=== PATIENT | female | born 1980 | race Caucasian/White ===

== ENCOUNTER 2018-05-19 06:05 | Inpatient (IN) | payer OTHER ==
[2018-05-18 08:44] VITALS: BMI 31.4
[2018-05-19 06:31] LABS: HEMOGLOBIN 8.1 GM/dL (10.7-15.3); MCH 20.6 pg (25.7-33.7); MCHC 31.3 g/dl (32.0-36.0); MEAN CELL VOLUME 65.9 fl (80-96); MEAN PLT VOLUME 9.9 fl (7.5-11.1); PLATELET COUNT 200 K/MM3 (134-434); RBC 3.94 M/mm3 (3.60-5.2); WHITE BLOOD COUNT 9.5 K/mm3 (4.0-10.0)
[2018-05-19] MEDS ORDERED: IBUPROFEN 800 MG/8 ML IJ IVPB PRN (06:39)
[2018-05-19] MEDS ORDERED: ONDANSETRON 4 MG/2 ML VIAL IVPUSH PRN (06:39)
[2018-05-19] MEDS ORDERED: BISACODYL 5 MG TABLET.DR (FP) PO PRN (06:39)
--- NOTE | 2018-05-19 06:39 | HP ---
History & Physical Update - History History: No Change - Physical Physical: No Change - Assessment Assessment: No Change - Plan Plan: No Change (No change in HP from 05/17/18)
[2018-05-19] MEDS ORDERED: LACTATED RINGERS SOLUTION 1,000 ML/1,000 ML INFUS.BAG IV SCH (06:45)
[2018-05-19] MEDS ORDERED: ceFAZolin SODIUM 1 GM VIAL ONE (06:58)
[2018-05-19] MEDS ORDERED: SUCCINYLCHOLINE CHLORIDE 200 MG/10 ML VIAL ONE (07:14)
[2018-05-19] MEDS ORDERED: fentaNYL CITRATE 250 MCG/5 ML VIAL ONE (07:14)
[2018-05-19] MEDS ORDERED: ROCURONIUM BROMIDE 50 MG/5 ML VIAL ONE ×2 (07:14→09:19)
[2018-05-19] MEDS ORDERED: PROPOFOL 20 ML ONE ×2 (07:14→08:30)
[2018-05-19] MEDS ORDERED: ROPIVACAINE HCL 0.5% 30ML VIAL ONE (07:14)
[2018-05-19] MEDS ORDERED: DEXAMETHASONE SOD PHOSPHATE 4 MG/1 ML VIAL ONE (07:15)
[2018-05-19] MEDS ORDERED: MIDAZOLAM HCL 2 MG/2 ML SINGLE DOSE VIAL ONE ×3 (07:15→07:16)
[2018-05-19] MEDS ORDERED: LIDOCAINE HCL/PF 2% SDV 5ML VIAL ONE (07:15)
[2018-05-19] MEDS ORDERED: VASOPRESSIN 20 UNITS/ML VIAL IV ONE (08:23)
[2018-05-19] MEDS ORDERED: ceFAZolin 2 GRAM PREMIX BAG IVPB ONE (08:35)
[2018-05-19] MEDS ORDERED: CEFAZOLIN 2 GM/D5W 2 GM/50 ML ML IVPB ONE (09:15)
[2018-05-19] MEDS ORDERED: GLYCOPYRROLATE 0.2 MG/1 ML VIAL ONE (09:53)
[2018-05-19] MEDS ORDERED: NEOSTIGMINE METHYLSULFATE 0.5 MG/ML - 10 ML MDV ONE (09:53)
[2018-05-19] MEDS ORDERED: HYDROmorphone *PCA* 10MG/50ML DISP.SYRIN PCA ONE ×2 (10:42→10:50)
[2018-05-19] MEDS ORDERED: HYDROmorphone *PCA* 10MG/50ML DISP.SYRIN PCA SCH ×2 (10:45→11:00)
--- NOTE | 2018-05-19 11:03 | SURG ---
Surgery Rest Room Matron Note Rest Room Matron: Pito Lynch PA-C (Suzy) Date of Service: 05/19/18 Diagnosis: Leiomyoma of uterus Procedure: Open abdominal myomectomy, right and left ovarian cystectomy I was present for the entirety of the operative procedure. For further detail, please refer to operative report. Visit type - Case Type Case Type: Scheduled - Emergency Emergency Visit: No - New patient This patient is new to me today: Yes Date on this admission: 05/19/18 - Critical Care Critical Care patient: No
--- NOTE | 2018-05-19 11:03 | OP ---
Operative Note - Note: Operative Date: 05/19/18 Pre-Operative Diagnosis: Leiomyoma of uterus Operation: Open abdominal myomectomy, right and left ovarian cystectomy Findings: as dictated Implants: none Post-Operative Diagnosis: Same as Pre-op Surgeon: Nanci Chin Pmo Project Manager: Pito Lynch Anesthesiologist/TUBER HELPER: Viridiana Levine Anesthesia: General Specimens Removed: leiomyoma x6, b/l ovarian cysts Estimated Blood Loss (mls): 50 (ml) Drains & Tubes with Location: none Drains, Volume Out (mls): 375 (ml clear urine) Fluid Volume Replaced (mls): 1,500 (ml) Operative Report Dictated: Yes
[2018-05-19] MEDS: ENOXAPARIN NA (PORCINE) 40 MG/0.4 ML DISP.SYRIN SQ SCH (13:48)
[2018-05-19] MEDS: CEFAZOLIN 2 GM/D5W 2 GM/50 ML ML IVPB SCH (18:21)
[2018-05-19 19:16] LABS: HEMATOCRIT 22.6 % (32.4-45.2); MCH 20.2 pg (25.7-33.7); MEAN CELL VOLUME 65.1 fl (80-96); PLATELET COUNT 196 K/MM3 (134-434); RBC 3.47 M/mm3 (3.60-5.2); RDW 19.9 % (11.6-15.6); WHITE BLOOD COUNT 13.7 K/mm3 (4.0-10.0)
[2018-05-19 19:34] LABS: ANION GAP 9 MMOL/L (8-16); BLOOD UREA NITROGEN 14 mg/dL (7-18); CALCIUM 7.9 mg/dL (8.5-10.1); CHLORIDE 103 mmol/L (98-107); CO2 24 mmol/L (21-32); CREATININE 0.7 mg/dL (0.55-1.3); GLUCOSE,RANDOM 149 mg/dL (74-106); POTASSIUM 4.2 mmol/L (3.5-5.1); SODIUM 136 mmol/L (136-145)
[2018-05-20] MEDS: CEFAZOLIN 2 GM/D5W 2 GM/50 ML ML IVPB SCH (01:04)
[2018-05-20 06:11] LABS: HEMATOCRIT 20.6 % (32.4-45.2); MEAN CELL VOLUME 65.7 fl (80-96); PLATELET COUNT 144 K/MM3 (134-434); RBC 3.13 M/mm3 (3.60-5.2); RDW 19.9 % (11.6-15.6); WHITE BLOOD COUNT 12.5 K/mm3 (4.0-10.0)
[2018-05-20 06:39] LABS: MCH 19.1 pg (25.7-33.7)
[2018-05-20] MEDS ORDERED: oxyCODONE HCL 5 MG TABLET PO PRN (06:39)
[2018-05-20 06:41] LABS: ANION GAP 7 MMOL/L (8-16); BLOOD UREA NITROGEN 11 mg/dL (7-18); CALCIUM 7.4 mg/dL (8.5-10.1); CHLORIDE 103 mmol/L (98-107); CO2 27 mmol/L (21-32); CREATININE 0.7 mg/dL (0.55-1.3); GLUCOSE,RANDOM 121 mg/dL (74-106); POTASSIUM 3.7 mmol/L (3.5-5.1); SODIUM 137 mmol/L (136-145)
--- NOTE | 2018-05-20 08:23 | PN ---
Progress Note (short form) - Note Progress Note: Post op day#1.S/P Abdominal myomectomy under Ga with TAp block uneventful.Patient stable and has pain score of 3-4/10.So will Dc MANAGER CARD and put patient on PRN pain medication.No any anesthesia related problem.Patient Dc from the anesthesia care.
--- NOTE | 2018-05-20 08:28 | PN ---
Progress Note (short form) - Note Progress Note: POD 1, s/p open abdominal myomectomy, bilateral ovarian cystectomy Pt seen and examined. Reports pain is controlled with use of FURNACE PUNCHER. Has not been oob. Endorses light headedness/dizziness with sitting up in bed. Has not had PO. No flatus. Brown in place. Denies cp/sob, n/v/d, calf pain/edema, vaginal bleeding. Vital Signs Temp 97.6 F 05/20/18 06:00 Pulse 106 H 05/20/18 06:00 Resp 20 05/20/18 06:00 BP 109/46 L 05/20/18 06:00 Pulse Ox 99 05/19/18 21:00 Intake & Output 05/19/18 05/19/18 05/20/18 11:59 23:59 11:59 Intake Total 9360 454 0980 Output Total 425 800 800 Balance 1375 0 750 Intake: IV 5710 176 2448 LACTATED RINGERS SOLUTION 700 1500 1,000 ml In 1,000 ml @ 125 mls/hr IV ASDIR [facility] Rx#:[id number] IVPB 100 50 Output: Urine 375 800 800 Brown 400 800 Estimated Blood Loss 50 Other: Voiding Method Indwelling Catheter CBC, BMP 05/20/18 05:56 05/20/18 06:00 Gen: awake,, alert, nad, appears pale Eyes: pale conjunctive b/l Resp: cta b/l anteriorly CV: tachy, s1s2 Abdo: soft, minimally distended, tender near incision site (appropriate to status), dressing c/d/i. Hypoactive bowel sounds. : Brown in place with clear urine in bag Ext: b/l le calf soft, nt, non-edematous, tedds in place, scds removed for short period by RN as pt c/o heat in room A/P: 38 y/o F w/ PMhx htn, hypothyroidism, NIDDM, leiomyomas, now POD1 s/p open abdominal myomectomy, bilateral ovarian cystectomy. Labs notable for hemoglobin of 6.0 (preop 8.1), pt with symptomatic acute blood loss anemia. Pain controlled P: -2units pRBC ordered (1/2 infusing now), post transfusion cbc ordered for 2 hours after second unit -F/U Am labs -Continue pain management per anesthesia -Brown out when pt is oob and ambulating -Advance diet as tolerated -OOB with assistance -Zofran 4mg q6hrs prn nausea -Bowel regimen as ordered -Monitor I&Os -VS per protocol -Incentive spirometer strongly encouraged -DVT prophylaxis with Lovenox 40 qd, scds and early ambulation -FS, ISS above d/w attending Dr Chin
[2018-05-20] MEDS ORDERED: PCA PUMP KEY 1 EACH EACH ONE (08:36)
--- NOTE | 2018-05-20 09:19 | PN ---
Progress Note, Physician Chief Complaint: Pt feeling well, tired, but denies pain/SOB/F/C/SAMAYOA. Hgb 6.0 this a.m., currently on 1st of 2 units pRBC ordered. - Current Medication List Current Medications: Active Medications Acetaminophen (Tylenol -) 650 mg PO Q4H PRN PRN Reason: FEVER Bisacodyl (Dulcolax -) 10 mg PO ONCE PRN PRN Reason: CONSTIPATION Docusate Sodium (Colace -) 100 mg PO TID PRN PRN Reason: CONSTIPATION Enoxaparin Sodium (Lovenox -) 40 mg SQ DAILY [facility] Last Admin: 05/19/18 13:48 Dose: Not Given Fentanyl (Sublimaze Injection -) 50 mcg IVPUSH [id number] PRN PRN Reason: PAIN-PACU ORDER X 4 DOSES ONLY Lactated Ringer's (Lactated Ringers Solution) 1,000 ml in 1,000 mls @ 125 mls/ hr IV ASDIR [facility] Last Admin: 05/19/18 18:27 Dose: 125 mls/hr Ibuprofen (Caldolor Injection -) 800 mg IVPB Q8H PRN PRN Reason: PAIN LEVEL 1-5 Insulin Aspart (Novolog Vial Sliding Scale -) 1 vial SQ [facility]; Protocol Ondansetron HCl (Zofran Injection) 4 mg IVPUSH Q4H PRN PRN Reason: NAUSEA AND/OR VOMITING Last Admin: 05/19/18 17:38 Dose: 4 mg Oxycodone HCl (Roxicodone -) 5 mg PO Q4H PRN PRN Reason: PAIN LEVEL 1-5 Oxycodone HCl (Roxicodone -) 10 mg PO Q4H PRN PRN Reason: PAIN LEVEL 6-10 - Objective Vital Signs: Vital Signs Temperature 97.6 F 05/20/18 06:00 Pulse Rate 106 H 05/20/18 06:00 Respiratory Rate 20 05/20/18 06:00 Blood Pressure 109/46 L 05/20/18 06:00 O2 Sat by Pulse Oximetry (%) 99 05/19/18 21:00 Constitutional: Yes: Well Nourished, No Distress, Calm Eyes: Yes: Conjunctiva Clear, EOM Intact HENT: Yes: Atraumatic, Normocephalic Neck: Yes: Supple, Trachea Midline Cardiovascular: Yes: Regular Rate and Rhythm Respiratory: Yes: WNL Gastrointestinal: Yes: WNL Extremities: Yes: WNL Wound/Incision: Yes: Dressing Dry and Intact Psychiatric: Yes: Alert, Oriented Labs: CBC, BMP 05/20/18 05:56 05/20/18 06:00 Problem List - Problems (1) S/P myomectomy Code(s): Z98.890 - OTHER SPECIFIED POSTPROCEDURAL STATES (2) Acute anemia Code(s): D64.9 - ANEMIA, UNSPECIFIED Assessment/Plan Pt anemic for 2 units PRBC, repeat CBC after transfusion clear diet for now, advance as tolerated d/c lui once more alert/stable continue home synthroid hold metformin until eating regular diet hold lisinopril until needed for BP
[2018-05-20] MEDS ORDERED: LEVOTHYROXINE NA 175 MCG TABLET PO SCH (10:00)
[2018-05-20] MEDS: ENOXAPARIN NA (PORCINE) 40 MG/0.4 ML DISP.SYRIN SQ SCH (11:12)
[2018-05-20] MEDS: INSULIN SLIDING SCALE (NOVOLOG) 1 VIAL SQ SCH ×3 (11:18→22:10)
[2018-05-20] MEDS: oxyCODONE HCL 5 MG TABLET PO PRN ×2 (14:19→20:10)
[2018-05-20] MEDS: ACETAMINOPHEN 325 MG TABLET (FP) PO PRN ×2 (14:20→20:08)
[2018-05-20 17:34] LABS: BASO % 0.3 % (0-2.0); EOS % 0.1 % (0-4.5); HEMATOCRIT 27.4 % (32.4-45.2); HEMOGLOBIN 8.9 GM/dL (10.7-15.3); LYMPH % 13.8 % (8-40); MCHC 32.6 g/dl (32.0-36.0); MEAN CELL VOLUME 70.4 fl (80-96); MEAN PLT VOLUME 11.1 fl (7.5-11.1); MONO % 6.8 % (3.8-10.2); PLATELET COUNT 168 K/MM3 (134-434); RBC 3.89 M/mm3 (3.60-5.2); RDW 23.6 % (11.6-15.6); WHITE BLOOD COUNT 16.7 K/mm3 (4.0-10.0)
[2018-05-20 19:23] LABS: ANISOCYTOSIS 2+
[2018-05-20] MEDS: DOCUSATE SODIUM 100 MG CAPSULE (FP) PO PRN (20:11)
[2018-05-21] MEDS: oxyCODONE HCL 5 MG TABLET PO PRN ×4 (02:19→22:34)
[2018-05-21] MEDS: ACETAMINOPHEN 325 MG TABLET (FP) PO PRN ×4 (02:19→22:33)
[2018-05-21] MEDS: LEVOTHYROXINE 75 MCG, LEVOTHYROXINE 100 MCG PO SCH (06:15)
[2018-05-21] MEDS: INSULIN SLIDING SCALE (NOVOLOG) 1 VIAL SQ SCH ×4 (06:16→22:31)
[2018-05-21 07:06] LABS: BASO % 0.2 % (0-2.0); EOS % 0.3 % (0-4.5); HEMOGLOBIN 8.1 GM/dL (10.7-15.3); LYMPH % 15.3 % (8-40); MCH 21.5 pg (25.7-33.7); MEAN CELL VOLUME 71.7 fl (80-96); MEAN PLT VOLUME 9.9 fl (7.5-11.1); MONO % 5.7 % (3.8-10.2); NEUT % 78.5 % (42.8-82.8); PLATELET COUNT 143 K/MM3 (134-434); RBC 3.77 M/mm3 (3.60-5.2); RDW 22.9 % (11.6-15.6); WHITE BLOOD COUNT 16.8 K/mm3 (4.0-10.0)
[2018-05-21 07:32] LABS: ANION GAP 4 MMOL/L (8-16); BLOOD UREA NITROGEN 8 mg/dL (7-18); CALCIUM 7.8 mg/dL (8.5-10.1); CHLORIDE 105 mmol/L (98-107); CO2 28 mmol/L (21-32); CREATININE 0.6 mg/dL (0.55-1.3); GLUCOSE,RANDOM 124 mg/dL (74-106); POTASSIUM 3.6 mmol/L (3.5-5.1); SODIUM 137 mmol/L (136-145)
--- NOTE | 2018-05-21 07:47 | PN ---
Progress Note (SOAP) - Subjective Chief Complaint: Pt with low grade temp no SOB mild pain + vaginal bleeding - Current Medications Current Medications: Active Medications Acetaminophen (Tylenol -) 650 mg PO Q4H PRN PRN Reason: FEVER Last Admin: 05/21/18 02:19 Dose: 650 mg Bisacodyl (Dulcolax -) 10 mg PO ONCE PRN PRN Reason: CONSTIPATION Docusate Sodium (Colace -) 100 mg PO TID PRN PRN Reason: CONSTIPATION Last Admin: 05/20/18 20:11 Dose: 100 mg Enoxaparin Sodium (Lovenox -) 40 mg SQ DAILY [facility] Last Admin: 05/20/18 11:12 Dose: 40 mg Fentanyl (Sublimaze Injection -) 50 mcg IVPUSH [id number] PRN PRN Reason: PAIN-PACU ORDER X 4 DOSES ONLY Lactated Ringer's (Lactated Ringers Solution) 1,000 ml in 1,000 mls @ 125 mls/ hr IV ASDIR [facility] Last Admin: 05/19/18 18:27 Dose: 125 mls/hr Ibuprofen (Caldolor Injection -) 800 mg IVPB Q8H PRN PRN Reason: PAIN LEVEL 1-5 Last Admin: 05/20/18 11:41 Dose: 800 mg Insulin Aspart (Novolog Vial Sliding Scale -) 1 vial SQ [facility]; Protocol Last Admin: 05/21/18 06:16 Dose: Not Given Levothyroxine Sodium 75 mcg/ (Levothyroxine Sodium 100 mcg) 175 mcg PO DAILY@ 0700 [facility] Last Admin: 05/21/18 06:15 Dose: 175 mcg Ondansetron HCl (Zofran Injection) 4 mg IVPUSH Q4H PRN PRN Reason: NAUSEA AND/OR VOMITING Last Admin: 05/19/18 17:38 Dose: 4 mg Oxycodone HCl (Roxicodone -) 5 mg PO Q4H PRN PRN Reason: PAIN LEVEL 1-5 Last Admin: 05/21/18 02:19 Dose: 5 mg Oxycodone HCl (Roxicodone -) 10 mg PO Q4H PRN PRN Reason: PAIN LEVEL 6-10 - Objective Vital Signs: Vital Signs Temperature 98.0 F 05/21/18 06:25 Pulse Rate 102 H 05/21/18 06:25 Respiratory Rate 18 05/21/18 06:25 Blood Pressure 119/67 05/21/18 06:25 O2 Sat by Pulse Oximetry (%) 99 05/19/18 21:00 Constitutional: Yes: Well Nourished, No Distress Neck: Yes: WNL Gastrointestinal: Yes: WNL, Soft, Abdomen, Obese ....Post : Yes: Uterus firm Breast(s): Yes: WNL Musculoskeletal: Yes: WNL Extremities: Yes: WNL Edema: No Wound/Incision: Yes: Steri Strips, Dressing Removed Neurological: Yes: WNL, Alert, Oriented Labs Lab Results: CBC, BMP 05/21/18 06:00 05/21/18 06:00 Problem List - Problems (1) Acute anemia Code(s): D64.9 - ANEMIA, UNSPECIFIED (2) S/P myomectomy Code(s): Z98.890 - OTHER SPECIFIED POSTPROCEDURAL STATES Assessment/Plan SP myomectomy POD2 anemia low grade temp elevated WBC Plan cbc this am will observe due to low grade temp augmentin BID 500mg
--- NOTE | 2018-05-21 08:38 | OP ---
DATE OF OPERATION: 05/19/2018 PREOPERATIVE DIAGNOSIS: Leiomyomatous uterus. OPERATION: Abdominal myomectomy and right and left ovarian cystectomy. POSTOPERATIVE DIAGNOSES: Leiomyomatous uterus as well as left and right ovarian cysts. SURGEON: Nanci Chin MD FILLER ROOM ATTENDANT: , BETH NURSE ESTIMATOR PRINTING: Viridiana Levine CRNA ANESTHESIA: General. FINDINGS: Approximately 6 fibroids removed the largest being about 11 to 12 cm and bilateral ovarian cysts, rule out a dermoid on the left ovary and rule out a corpus luteal cyst on the right ovary. ESTIMATED BLOOD LOSS: 50 mL. PROCEDURE: Patient was taken to the operating room, placed in supine position, prepped and draped in the usual sterile fashion. Timeout was performed in accordance with hospital regulation. Pfannenstiel skin incision was made with a scalpel. Cautery was then used to go through the layers of the abdominal wall to the level of the fascia. Fascia was cut in the midline and cautery was then used to open the fascia in smiling fashion. Shawna was then used to bluntly and sharply dissect the rectus muscle off the fascia and muscle split in the midline. Peritoneal cavity was then entered and carried up and down. A leiomyomatous uterus approximately 18 cm in size was then exteriorized. Abdominal packing was then placed. Tourniquet was then placed in clear space to the broad and placed around the vessels. Pitressin was then infiltrated anteriorly and a large 12-cm incision was made vertically. The myoma was then enucleated out using blunt and sharp technique. Cautery of the vessels was done along the way and the 12-cm myoma anteriorly was removed. Multiple myomas were seen posteriorly and removed using cautery and coagulation of vessels and each myoma was then entered. The serosa was then entered and enucleated out using blunt and sharp technique. Approximately 6 myomas were removed. All incisions were then closed in layers. The vertical incision was closed in about 4 layers continuous and locking x2 and then 3rd layer continuous using 0 Vicryl suture and the last layer using 2-0 V-Loc suture in a baseball stitch or imbricating stitch. Hemostasis was achieved. All other incisions were closed with 0 Vicryl suture and 2-0 V-Loc suture on the serosa. All incisions were noted to be hemostatic. Intercede was then placed on the incisions. Two sheets of Intercede were used, 1 posteriorly which was sewn on and 1 anteriorly also was stitched on. Uterus was then interiorized after packing removed, abdominal sweep done. Peritoneum closed using 0 Vicryl suture, continuous fashion. Muscles approximated in the midline using 0 Vicryl suture. Fascia then closed using 0 Vicryl suture in 2 parts. Skin was then closed using 3-0 Vicryl, subcuticular fashion. Wound was washed and dressed. During the case the ovaries were examined and found to have bilateral cysts. The 1 on the right side was about 3 cm and the 1 on the left was about 3 cm. The cysts were removed. Bilateral cystectomies were performed and specimens submitted to Pathology. The skin was then closed using 3-0 Vicryl suture. Wound was washed and dressed. Patient tolerated procedure well, was taken to the recovery room in stable condition. Estimated blood loss 50 mL. Kiran [id number]
[2018-05-21] MEDS: AMOX TR/POT CLAV 500MG/125MG TABLETS (FP) PO SCH ×2 (08:46→17:07)
[2018-05-21] MEDS: ENOXAPARIN NA (PORCINE) 40 MG/0.4 ML DISP.SYRIN SQ SCH (09:15)
[2018-05-21] MEDS: DOCUSATE SODIUM 100 MG CAPSULE (FP) PO PRN (22:35)
[2018-05-22] MEDS: LEVOTHYROXINE 75 MCG, LEVOTHYROXINE 100 MCG PO SCH (06:16)
[2018-05-22] MEDS: oxyCODONE HCL 5 MG TABLET PO PRN (06:29)
[2018-05-22] MEDS: ACETAMINOPHEN 325 MG TABLET (FP) PO PRN (06:29)
[2018-05-22] MEDS: DOCUSATE SODIUM 100 MG CAPSULE (FP) PO PRN (06:29)
[2018-05-22] MEDS: INSULIN SLIDING SCALE (NOVOLOG) 1 VIAL SQ SCH ×2 (06:32→11:38)
[2018-05-22 07:55] VITALS: BP 134/73; PULSE 101; TEMP 98
[2018-05-22] MEDS: AMOX TR/POT CLAV 500MG/125MG TABLETS (FP) PO SCH (08:18)
[2018-05-22] MEDS: ENOXAPARIN NA (PORCINE) 40 MG/0.4 ML DISP.SYRIN SQ SCH (09:02)
[2018-05-22 09:23] LABS: BASO % 0.3 % (0-2.0); EOS % 2.1 % (0-4.5); HEMATOCRIT 27.3 % (32.4-45.2); HEMOGLOBIN 8.8 GM/dL (10.7-15.3); MCH 23.1 pg (25.7-33.7); MCHC 32.4 g/dl (32.0-36.0); MEAN CELL VOLUME 71.1 fl (80-96); MONO % 5.6 % (3.8-10.2); PLATELET COUNT 188 K/MM3 (134-434); RBC 3.84 M/mm3 (3.60-5.2); RDW 23.9 % (11.6-15.6); WHITE BLOOD COUNT 11.6 K/mm3 (4.0-10.0)
--- NOTE | 2018-05-22 11:01 | DS ---
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 Vital Signs: Vital Signs Temperature 98 F 05/22/18 07:20 Pulse Rate 101 H 05/22/18 07:20 Respiratory Rate 18 05/22/18 07:20 Blood Pressure 134/73 05/22/18 07:20 O2 Sat by Pulse Oximetry (%) 98 05/22/18 07:20 Constitutional: Yes: Well Nourished, No Distress Neck: Yes: WNL Cardiovascular: Yes: WNL Respiratory: Yes: WNL Gastrointestinal: Yes: Soft, Abdomen, Obese ....Post : Yes: Uterus firm Musculoskeletal: Yes: WNL Extremities: Yes: WNL Wound/Incision: Yes: Open to air, Dressing Removed Neurological: Yes: WNL, Alert, Oriented Labs: CBC, BMP 05/22/18 08:30 05/21/18 06:00 Discharge Summary Reason For Visit: LEIOMYOMA OF UTERUS Current Active Problems Acute anemia (Acute) S/P myomectomy (Acute) Procedures: Principal: Abdmonal myomectomy. bilateral ovarian cystectomy Hospital Course: transfusion x 2 units Condition: Fair - Instructions Diet, Activity, Other Instructions: Dr. Nanci Chin Sequencing Machine Operator discharge instructions Physical activity Resume your normal everyday activity as tolerated no heavy lifting (nothing greater than 5 pounds) or exercise until seen by your surgeon. You may walk unlimited graciela of and climb stairs. You may resume driving the car when you feel safe and comfortable behind the wheel and are no longer taking narcotic pain medications. No sexual activity as instructed by Dr. Chin. Wound care If you have a bandage, leave it on, and keep dry for 72 hours. After that time discard the outer bandage. If they are tapes on the skin under the out of bandage leave them in place. They will peel off in the next 7 to 10 days. Do Not Peel them off. You may shower in 72 hours. Take the top band-aid off, keep the steri-strips in place (small white strips), these will come off on their own over the next few days. Allow soap and water to run over the incisions, do not scrub the incisions. Pat dry well after. Diet There are no dietary restrictions. Eat healthy, high-fiber foods. Drink 6 to 8 glasses of liquid each day. This will assist in keeping your bowels are regular. If you experience constipation we recommend an over the counter stool softener, take as directed. Pain management You may take Tylenol (Acetaminophen) for mild pain. Do not take more than 4g ( 4000mg) in 24 hours as this can lead to liver damage/failure. You have been prescribed a narcotic pain medication for moderate to severe pain. Please take as directed. Do not drive, drink alcohol or operate heavy machinery while taking narcotic pain medications. Call Dr. Chin for any of the following: Severe pain not relieved by medication Fever of 101 or higher Excessive bleeding or drainage on dressing Inability to urinate ISTOP: [phone] Call the office at [phone] for an appointment in seven days. - Home Medications Comprehensive Discharge Medication List: Ambulatory Orders Levothyroxine [Synthroid -] 175 mcg PO DAILY 05/18/18 Lisinopril 10 mg PO DAILY 05/18/18 metFORMIN HCL [Metformin HCl ER] 500 mg PO BID 05/18/18
--- NOTE | 2018-05-24 18:10 | PATH ---
Surgical Pathology Report Patient Name: ANNE-MARIE ARNOLD [facility]. Rec. #: [id number] /Age/Gender: 1980 (Age: 38) / F Account: [id number] Location: [facility] OBS/PIPE BENDER Taken: 05/19/2018 Received: 05/19/2018 Reported: 05/24/2018 Physicians: Nanci Chin M.D. Specimen(s) Received A: FIBROIDS B: LEFT OVARIAN CYST C: RIGHT OVARIAN CYST Clinical History Leiomyoma of uterus Final Diagnosis A. FIBROIDS, EXCISION: LEIOMYOMA, MULTIPLE. B. LEFT OVARIAN CYST, EXCISION: BENIGN CYST, CONSISTENT WITH HEMORRHAGIC FOLLICULAR CYST. Comment: The cyst shows lining epithelial denudation. The Immunohistochemical stain CD10 (on block B1) is negative in the cystic wall stroma, an endometrioid cyst is unlikely. Immunohistochemistry stain CD10 performed at [place], [place] ([id number]) interpreted at [facility]. Positive and negative controls (internal if applicable) show appropriate results. C. RIGHT OVARIAN CYST, EXCISION: HEMORRHAGIC CORPUS LUTEUM. Electronically Signed Gurdeep Lo M.D. Gross Description A. Received in formalin labeled "fibroids," is an 874 g aggregate of 6 ramirez, firm nodules ranging from 2.4-12.5 cm in greatest dimension, consistent with fibroids. Sectioning reveals ramirez, firm to rubbery parenchyma with a whorled architecture. No areas of hemorrhage or necrosis are identified. Time Study Statistician sections are submitted in 9 cassettes as follows: [id number] from five smaller fibroids; [id number] from largest fibroid. B. Received in formalin labeled "left ovarian cyst," is a 1.7 x 1.6 x 1.5 cm ramirez, intact cystic structure. The outer surface is smooth. Sectioning reveals ramirez-brown parenchyma with focal hemorrhage. The specimen is serially sectioned and entirely submitted in 2 cassettes. C. Received in formalin labeled "right ovarian cyst" is a 1.8 x 1.3 x 1.2 cm focally disrupted cystic structure. The outer surface is ramirez billingsley and smooth with a focal defect. Sectioning reveals a hemorrhagic corpus luteum. The specimen is serially sectioned and entirely submitted in one cassette. DL/05/19/2018 saudi05/19/2018
== END 2018-05-22 12:25 | disposition home or self-care (01) | DRG 519 ==
LOC: JSAMEDAYSX 06:05 → J3W 13:20
PROVIDERS: ADMIT Obstetrics & Gynecology; ATTEND Obstetrics & Gynecology
PROC: 0UB20ZZ Excision of Bilateral Ovaries, Open Approach (ICD-10-PCS; 2018-05-19)
PROC: 0UB90ZZ Excision of Uterus, Open Approach (ICD-10-PCS; principal; 2018-05-19 08:00)
PROC: 30233N1 Transfusion of Nonautologous Red Blood Cells into Peripheral Vein, Percutaneous Approach (ICD-10-PCS; 2018-05-20)
DX: D25.9 Leiomyoma of uterus, unspecified (principal); D62 Acute posthemorrhagic anemia; N83.202 Unspecified ovarian cyst, left side; N83.201 Unspecified ovarian cyst, right side; I10 Essential (primary) hypertension; E03.9 Hypothyroidism, unspecified; E11.9 Type 2 diabetes mellitus without complications; Z79.84 Long term (current) use of oral hypoglycemic drugs
CPT/HCPCS: 36415; 36430; 80048; 82962; 84703; 85025; 85027; 86850; 86900; 86901; 86922; 88304-TC; 88305-TC; 94010; 94760; P9038; P9058

== ENCOUNTER 2020-05-24 11:45 | Emergency (ER) | payer OTHER | END 2020-05-24 12:06 | disposition home or self-care (01) | LOC: JVIRT 11:45 | DX: U07.1 COVID-19 (principal); R50.9 Fever, unspecified | CPT/HCPCS: C9803; G2251-GT; Q3014-GT; U0003 ==

== ENCOUNTER 2020-06-07 11:00 | Emergency (ER) | payer OTHER | END 2020-06-07 11:21 | disposition home or self-care (01) | LOC: JVIRT 11:00 | DX: U07.1 COVID-19 (principal) | CPT/HCPCS: C9803; G2012-GT; U0003 ==

== ENCOUNTER 2020-06-21 12:05 | Emergency (ER) | payer OTHER | END 2020-06-21 13:01 | disposition home or self-care (01) | LOC: JVIRT 12:05 | DX: Z11.52 Encounter for screening for COVID-19 (principal) | CPT/HCPCS: G2251-GT; Q3014-GT ==

== ENCOUNTER 2023-11-28 14:35 | Inpatient (IN) | payer OTHER ==
[2023-11-28 15:40] LABS: BASO % 0.4 % (0-2.0); EOS % 1.6 % (0-4.5); HEMATOCRIT 27.1 % (32.4-45.2); HEMOGLOBIN 8.1 GM/dL (10.7-15.3); LYMPH % 21.1 % (8-40); MCHC 29.9 g/dl (32.0-36.0); MEAN CELL VOLUME 65.4 fl (80-96); MEAN PLT VOLUME 10.4 fl (7.5-11.1); MONO % 4.6 % (3.8-10.2); NEUT % 72.3 % (42.8-82.8); PLATELET COUNT 241 10^3/uL (134-434); RBC 4.14 M/mm3 (3.60-5.2); RDW 20.1 % (11.6-15.6); WHITE BLOOD COUNT 11.9 K/mm3 (4.0-10.0)
[2023-11-28 15:42] LABS: MCH 19.6 pg (25.7-33.7)
[2023-11-28 15:48] LABS: INR 1.16 (0.83-1.09)
[2023-11-28 15:57] LABS: POTASSIUM 4.7 mmol/L (3.5-5.1)
[2023-11-28 15:59] LABS: CALCIUM 8.7 mg/dL (8.5-10.1)
[2023-11-28 16:00] LABS: ALBUMIN 3.8 g/dl (3.4-5.0); BLOOD UREA NITROGEN 16.7 mg/dL (7-18)
[2023-11-28] MEDS ORDERED: ACETAMINOPHEN 325 MG TABLET (FP) ONE (16:02)
[2023-11-28] MEDS ORDERED: morphine SULFATE 4 MG/ML VIAL ONE ×2 (16:02→22:15)
[2023-11-28 16:03] LABS: CREATININE 0.9 mg/dL (0.55-1.3)
[2023-11-28 16:04] LABS: BILIRUBIN,TOTAL 0.3 mg/dL (0.2-1); TOT PROT 7.4 g/dl (6.4-8.2)
[2023-11-28] MEDS: ACETAMINOPHEN 500 MG TABLET (FP) PO ONE (16:06)
[2023-11-28] MEDS: morphine SULFATE 4 MG/ML VIAL IVPUSH ONE ×2 (16:06→22:24)
[2023-11-28 16:32] LABS: ANISOCYTOSIS 1+; MACROCYTOSIS 0; OVALOCYTE 1+
[2023-11-28] MEDS ORDERED: LIDOCAINE HCL 1%, 10 MG/ML (20ML VIAL) ONE (17:29)
[2023-11-28] MEDS ORDERED: MIDAZOLAM HCL 2 MG/2 ML SINGLE DOSE VIAL ONE (17:50)
[2023-11-28] MEDS: LIDOCAINE HCL 1%, 10 MG/ML (50 mL VIAL) PNB ONE (17:59)
[2023-11-28] MEDS ORDERED: PROPOFOL 1,000,000 MCG/100 ML VIAL ONE (18:06)
[2023-11-28] MEDS: MIDAZOLAM HCL 2 MG/2 ML SINGLE DOSE VIAL IVPUSH ONE (18:32)
[2023-11-28] MEDS: PROPOFOL 200 MG/20 ML VIAL IVPUSH ONE ×2 (18:49)
[2023-11-28] MEDS ORDERED: DOCUSATE SODIUM 100 MG CAPSULE (FP) PO PRN (20:13)
[2023-11-28] MEDS: SODIUM CHLORIDE 1,000 ML IV SCH (21:20)
[2023-11-28] MEDS ORDERED: INSULIN ASPART SLIDING SCALE (NOVOLOG) 1 VIAL SQ ONE (22:30)
[2023-11-28] MEDS: INSULIN ASPART SLIDING SCALE (NOVOLOG) 1 VIAL SQ SCH (22:36)
[2023-11-28 23:48] LABS: POTASSIUM 3.9 mmol/L (3.5-5.1)
[2023-11-28 23:51] LABS: BLOOD UREA NITROGEN 18.2 mg/dL (7-18); CALCIUM 8.1 mg/dL (8.5-10.1); MAGNESIUM 1.9 mg/dL (1.8-2.4)
[2023-11-28 23:54] LABS: CREATININE 0.8 mg/dL (0.55-1.3); PHOSPHOROUS 4.1 mg/dL (2.5-4.9)
[2023-11-29 06:07] LABS: BASO % 0.3 % (0-2.0); EOS % 1.5 % (0-4.5); HEMATOCRIT 23.8 % (32.4-45.2); HEMOGLOBIN 7.1 GM/dL (10.7-15.3); LYMPH % 27.7 % (8-40); MEAN CELL VOLUME 66.1 fl (80-96); MEAN PLT VOLUME 10.2 fl (7.5-11.1); MONO % 7.5 % (3.8-10.2); PLATELET COUNT 172 10^3/uL (134-434); WHITE BLOOD COUNT 10.8 K/mm3 (4.0-10.0)
[2023-11-29 06:08] LABS: POTASSIUM 4.2 mmol/L (3.5-5.1)
[2023-11-29 06:13] LABS: BLOOD UREA NITROGEN 18.1 mg/dL (7-18)
[2023-11-29 06:16] LABS: CREATININE 0.8 mg/dL (0.55-1.3)
[2023-11-29 06:32] LABS: MCH 19.8 pg (25.7-33.7)
[2023-11-29] MEDS ORDERED: ACETAMINOPHEN INJECTION 100 ML IVPB ONE (06:38)
[2023-11-29] MEDS: ACETAMINOPHEN 1000 MG/100 ML BAG IVPB PRN (06:39)
[2023-11-29] MEDS ORDERED: LEVOTHYROXINE NA 100 MCG TABLET (FP) ONE (08:19)
[2023-11-29] MEDS: LEVOTHYROXINE NA 100 MCG TABLET (FP) PO SCH (08:24)
[2023-11-29] MEDS ORDERED: INSULIN ASPART SLIDING SCALE (NOVOLOG) 1 VIAL SQ ONE (08:50)
[2023-11-29] MEDS ORDERED: LABETALOL HCL 100 MG TABLET (FP) ONE (10:08)
[2023-11-29] MEDS: LABETALOL HCL 100 MG TABLET (FP) PO SCH (10:20)
[2023-11-29 12:19] VITALS: BMI 29.5
[2023-11-29] MEDS: ATORVASTATIN CA 10 MG TABLET (FP) PO SCH (21:04)
[2023-11-30] MEDS: ACETAMINOPHEN 500 MG TABLET (FP) PO PRN (10:30)
[2023-11-30 15:08] LABS: N-TERMINAL BNP 29.9 pg/ml (5-125)
[2023-12-01] MEDS: LEVOTHYROXINE NA 75 MCG TABLET (FP) PO SCH (06:34)
[2023-12-01 08:03] LABS: BASO % 0.3 % (0-2.0); EOS % 1.3 % (0-4.5); HEMATOCRIT 24.5 % (32.4-45.2); HEMOGLOBIN 7.3 GM/dL (10.7-15.3); LYMPH % 24.9 % (8-40); MCHC 29.9 g/dl (32.0-36.0); MEAN CELL VOLUME 65.8 fl (80-96); MEAN PLT VOLUME 9.8 fl (7.5-11.1); MONO % 7.2 % (3.8-10.2); NEUT % 66.3 % (42.8-82.8); PLATELET COUNT 170 10^3/uL (134-434); RBC 3.72 M/mm3 (3.60-5.2); RDW 20.2 % (11.6-15.6); WHITE BLOOD COUNT 11.3 K/mm3 (4.0-10.0)
[2023-12-01 08:07] LABS: MCH 19.7 pg (25.7-33.7)
[2023-12-01 08:21] LABS: POTASSIUM 4.1 mmol/L (3.5-5.1)
[2023-12-01 08:23] LABS: CALCIUM 8.2 mg/dL (8.5-10.1)
[2023-12-01 08:24] LABS: ALBUMIN 3.2 g/dl (3.4-5.0); BLOOD UREA NITROGEN 10.8 mg/dL (7-18)
[2023-12-01 08:27] LABS: CREATININE 0.7 mg/dL (0.55-1.3)
[2023-12-01 08:29] LABS: BILIRUBIN,TOTAL 0.4 mg/dL (0.2-1); TOT PROT 6.9 g/dl (6.4-8.2)
[2023-12-01] MEDS: LISINOPRIL 10 MG TABLET PO SCH (10:34)
[2023-12-01] MEDS ORDERED: INSULIN ASPART SLIDING SCALE (NOVOLOG) 1 VIAL SQ ONE (11:58)
[2023-12-02 07:16] LABS: BASO % 0.3 % (0-2.0); EOS % 1.6 % (0-4.5); HEMATOCRIT 27.3 % (32.4-45.2); HEMOGLOBIN 8.3 GM/dL (10.7-15.3); LYMPH % 31.3 % (8-40); MCH 21.2 pg (25.7-33.7); MCHC 30.5 g/dl (32.0-36.0); MEAN CELL VOLUME 69.4 fl (80-96); MEAN PLT VOLUME 10.7 fl (7.5-11.1); MONO % 8.5 % (3.8-10.2); NEUT % 58.3 % (42.8-82.8); PLATELET COUNT 165 10^3/uL (134-434); RBC 3.94 M/mm3 (3.60-5.2); RDW 21.8 % (11.6-15.6); WHITE BLOOD COUNT 12.4 K/mm3 (4.0-10.0)
[2023-12-02 07:31] LABS: POTASSIUM 3.9 mmol/L (3.5-5.1)
[2023-12-02 07:36] LABS: ALBUMIN 2.8 g/dl (3.4-5.0); BLOOD UREA NITROGEN 15.5 mg/dL (7-18)
[2023-12-02 07:39] LABS: CREATININE 0.6 mg/dL (0.55-1.3)
[2023-12-02 07:40] LABS: BILIRUBIN,TOTAL 0.5 mg/dL (0.2-1)
[2023-12-02 07:41] LABS: TOT PROT 6.4 g/dl (6.4-8.2)
[2023-12-02 10:17] LABS: ANISOCYTOSIS 2+; MACROCYTOSIS 0; OVALOCYTE 1+
[2023-12-02 13:17] LABS: URINE APPEARANCE CLEAR; URINE BILIRUBIN NEGATIVE (NEGATIVE); URINE COLOR YELLOW; URINE GLUCOSE (UA) NEGATIVE (NEGATIVE); URINE KETONE NEGATIVE (NEGATIVE); URINE LEUK ESTERASE NEGATIVE (NEGATIVE); URINE NITRITE NEGATIVE (NEGATIVE); URINE PROTEIN NEGATIVE (NEGATIVE); URINE UROBILINOGEN 0.2 mg/dL (0.2-1.0)
[2023-12-02] MEDS: oxyCODONE HCL 5 MG TABLET PO PRN (19:11)
[2023-12-03] MEDS ORDERED: ROPIVACAINE HCL 0.5% 30ML VIAL ONE (15:10)
[2023-12-03] MEDS ORDERED: MIDAZOLAM HCL 2 MG/2 ML SINGLE DOSE VIAL ONE ×5 (15:14→18:44)
[2023-12-03] MEDS ORDERED: SODIUM CHLORIDE 0.9% P/F 10 ML VIAL IJ ONE (15:15)
[2023-12-03] MEDS ORDERED: ceFAZolin SODIUM 1 GM VIAL ONE (16:07)
[2023-12-03] MEDS ORDERED: DEXAMETHASONE SOD PHOSPHATE 4 MG/1 ML VIAL ONE (16:07)
[2023-12-03] MEDS: ceFAZolin SODIUM 1 GM VIAL IVPB ONE (16:09)
[2023-12-03] MEDS ORDERED: ONDANSETRON 4 MG/2 ML VIAL IVPUSH PRN ×2 (16:23→20:15)
[2023-12-03] MEDS ORDERED: oxyCODONE HCL 5 MG TABLET PO PRN ×3 (17:47→20:15)
[2023-12-03] MEDS ORDERED: NALOXONE HCL 0.4 MG/ML VIAL IVPUSH PRN ×2 (17:47→20:15)
[2023-12-03] MEDS ORDERED: DOCUSATE SODIUM 100 MG CAPSULE (FP) PO PRN (20:15)
[2023-12-03] MEDS ORDERED: ACETAMINOPHEN INJECTION 100 ML IVPB ONE (20:22)
[2023-12-03] MEDS: ACETAMINOPHEN 1000 MG/100 ML BAG IVPB ONE (20:32)
[2023-12-03] MEDS: LACTATED RINGERS SOLUTION 1,000 ML IV SCH (20:33)
[2023-12-03] MEDS: ATORVASTATIN CA 10 MG TABLET (FP) PO SCH (22:57)
[2023-12-03] MEDS: LABETALOL HCL 100 MG TABLET (FP) PO SCH (22:57)
[2023-12-03] MEDS: INSULIN ASPART SLIDING SCALE (NOVOLOG) 1 VIAL SQ SCH (23:15)
[2023-12-04] MEDS ORDERED: ACETAMINOPHEN 500 MG TABLET (FP) PO SCH
[2023-12-04] MEDS: LACTATED RINGERS SOLUTION 1,000 ML IV SCH (02:24)
[2023-12-04] MEDS: morphine SULFATE/PF 1 MG/2 ML (2cc Syringe - QUVA) IT ONE ×2 (02:24→02:29)
[2023-12-04] MEDS: ACETAMINOPHEN 1000 MG/100 ML BAG IVPB ONE (02:24)
[2023-12-04] MEDS: KETOROLAC TROMETHAMINE 30 MG/1 ML VIAL IVPUSH SCH ×2 (02:28→06:42)
[2023-12-04] MEDS: ACETAMINOPHEN 500 MG TABLET (FP) PO SCH (06:45)
[2023-12-04] MEDS: LEVOTHYROXINE 100 MCG, LEVOTHYROXINE 75 MCG PO SCH (06:48)
[2023-12-04] MEDS ORDERED: LEVOTHYROXINE NA 75 MCG TABLET (FP) PO SCH (07:00)
[2023-12-04 07:44] LABS: POTASSIUM 4.6 mmol/L (3.5-5.1)
[2023-12-04 07:46] LABS: CALCIUM 8.2 mg/dL (8.5-10.1)
[2023-12-04 07:47] LABS: ALBUMIN 3.2 g/dl (3.4-5.0)
[2023-12-04 07:50] LABS: CREATININE 0.6 mg/dL (0.55-1.3)
[2023-12-04 07:51] LABS: BILIRUBIN,TOTAL 0.4 mg/dL (0.2-1); TOT PROT 6.9 g/dl (6.4-8.2)
[2023-12-04 07:54] LABS: BASO % 0.1 % (0-2.0); HEMATOCRIT 27.6 % (32.4-45.2); HEMOGLOBIN 8.4 GM/dL (10.7-15.3); LYMPH % 13.2 % (8-40); MCH 21.1 pg (25.7-33.7); MCHC 30.4 g/dl (32.0-36.0); MEAN CELL VOLUME 69.3 fl (80-96); MEAN PLT VOLUME 10.8 fl (7.5-11.1); NEUT % 81.7 % (42.8-82.8); PLATELET COUNT 169 10^3/uL (134-434); RBC 3.98 M/mm3 (3.60-5.2); RDW 22.6 % (11.6-15.6)
[2023-12-04] MEDS: LISINOPRIL 10 MG TABLET PO SCH (09:20)
[2023-12-04] MEDS ORDERED: PATIENT'S OWN MEDICATION (NON-FORMULARY) (Levothyroxine [Synthroid -] 175 MCG Tablet) PO SCH (10:00)
[2023-12-04] MEDS: KETOROLAC TROMETHAMINE 30 MG/1 ML VIAL IVPUSH PRN (16:29)
[2023-12-04] MEDS: oxyCODONE HCL 5 MG TABLET PO PRN (22:54)
[2023-12-05] MEDS ORDERED: DOCUSATE SODIUM 100 MG CAPSULE (FP) PO PRN (17:50)
[2023-12-05] MEDS ORDERED: NALOXONE HCL 0.4 MG/ML VIAL IVPUSH PRN (17:50)
[2023-12-05] MEDS: ACETAMINOPHEN 500 MG TABLET (FP) PO SCH (18:05)
[2023-12-05] MEDS: LACTATED RINGERS SOLUTION 1,000 ML IV SCH (19:05)
[2023-12-05] MEDS: ATORVASTATIN CA 10 MG TABLET (FP) PO SCH (21:15)
[2023-12-05] MEDS: LABETALOL HCL 100 MG TABLET (FP) PO SCH (21:15)
[2023-12-05] MEDS: INSULIN ASPART SLIDING SCALE (NOVOLOG) 1 VIAL SQ SCH (21:27)
[2023-12-06 04:24] VITALS: RESP 18
[2023-12-06] MEDS: LEVOTHYROXINE 100 MCG, LEVOTHYROXINE 75 MCG PO SCH (06:22)
[2023-12-06] MEDS: LISINOPRIL 10 MG TABLET PO SCH (10:11)
[2023-12-06] MEDS: IRON SUCROSE INJECTION 200 MG in SODIUM CHLORIDE 100 ML IVPB SCH (15:58)
[2023-12-07 09:04] LABS: POTASSIUM 4.2 mmol/L (3.5-5.1)
[2023-12-07 09:15] LABS: BASO % 0.4 % (0-2.0); EOS % 2.8 % (0-4.5); HEMATOCRIT 27.2 % (32.4-45.2); HEMOGLOBIN 8.5 GM/dL (10.7-15.3); LYMPH % 26.4 % (8-40); MCH 21.6 pg (25.7-33.7); MCHC 31.2 g/dl (32.0-36.0); MEAN CELL VOLUME 69.2 fl (80-96); MEAN PLT VOLUME 9.5 fl (7.5-11.1); MONO % 8.1 % (3.8-10.2); NEUT % 62.3 % (42.8-82.8); PLATELET COUNT 150 10^3/uL (134-434); RBC 3.94 M/mm3 (3.60-5.2); RDW 24.1 % (11.6-15.6); WHITE BLOOD COUNT 7.3 K/mm3 (4.0-10.0)
[2023-12-07 09:20] LABS: ALBUMIN 2.8 g/dl (3.4-5.0); BLOOD UREA NITROGEN 10.3 mg/dL (7-18)
[2023-12-07 09:23] LABS: CREATININE 0.5 mg/dL (0.55-1.3)
[2023-12-07 09:25] LABS: BILIRUBIN,TOTAL 0.2 mg/dL (0.2-1); TOT PROT 6.3 g/dl (6.4-8.2)
[2023-12-07 10:47] LABS: ANISOCYTOSIS 3+; MACROCYTOSIS 0
[2023-12-07 11:29] VITALS: BP 165/70; PULSE 106; TEMP 97.7
== END 2023-12-07 14:15 | DRG 313 ==
LOC: JER 14:35 → JERBED 19:49 → J4W 11-29 11:09 → OBSVTOIN 11-29 13:43 → J4W 11-30 16:42 → J6S 12-05 18:03
PROVIDERS: ADMIT Internal Medicine; ATTEND Internal Medicine
PROC: 0QSJXZZ Reposition Right Fibula, External Approach (ICD-10-PCS; 2023-11-28)
PROC: 2W3QX1Z Immobilization of Right Lower Leg using Splint (ICD-10-PCS; 2023-11-28)
PROC: 0QSG04Z Reposition Right Tibia with Internal Fixation Device, Open Approach (ICD-10-PCS; principal; 2023-12-03 13:15)
DX: S82.851A Displaced trimalleolar fracture of right lower leg, initial encounter for closed fracture (principal); S52.121A Displaced fracture of head of right radius, initial encounter for closed fracture; I10 Essential (primary) hypertension; E78.5 Hyperlipidemia, unspecified; E11.9 Type 2 diabetes mellitus without complications; E03.9 Hypothyroidism, unspecified; D25.9 Leiomyoma of uterus, unspecified; R55 Syncope and collapse; D50.9 Iron deficiency anemia, unspecified; R42 Dizziness and giddiness; R26.2 Difficulty in walking, not elsewhere classified; W18.30XA Fall on same level, unspecified, initial encounter; Y93.9 Activity, unspecified; Y92.099 Unspecified place in other non-institutional residence as the place of occurrence of the external cause; Y99.9 Unspecified external cause status
CPT/HCPCS: 36415; 36430; 70450-TC; 71045-TC-FY; 73070-TC-RT-FY; 73200-TC-RT; 73590-TC-RT-FY; 73610-TC-RT-FY; 73630-TC-RT-FY; 73700-TC-RT; 76000-TC-FY; 76882-TC-RT; 80048; 80053; 80061; 81003; 82272; 82306; 82607; 82728; 82962; 83036; 83540; 83550; 83615; 83735; 83880; 84100; 84439; 84443; 84484; 84703; 85025; 85045; 85610; 85730; 86850; 86900; 86901; 86922; 93005; 93010; 93306-TC; 93880-TC; 94760; 97116-GP; 97162-GP; 99285-25; C1713; G0378; J0131; J1756; P9038; P9058

== ENCOUNTER 2024-01-19 13:10 | Emergency (ER) | payer OTHER ==
[2024-01-19 13:18] VITALS: BP 145/95; PULSE 88; RESP 18; TEMP 97.9; BMI 26.6
== END 2024-01-19 16:00 | disposition home or self-care (01) ==
LOC: JER 13:10
DX: S82.891D Other fracture of right lower leg, subsequent encounter for closed fracture with routine healing (principal); W17.89XD Other fall from one level to another, subsequent encounter
CPT/HCPCS: 73610-TC-RT-FY; 99283-25